=== PATIENT | male | born 1990 | race Caucasian/White ===

== ENCOUNTER 2023-03-03 18:09 | Emergency (ER) | payer SELFPAY ==
[2023-03-03 18:12] VITALS: BP 112/73; PULSE 75; TEMP 36.6; O2SAT 99; BMI 23.6
--- NOTE | 2023-03-03 18:17 | XRR_ITS ---
PROCEDURE INFORMATION: Exam: XR Right Hand Exam date and time: 03/03/2023 6:36 PM Age: 32 years old Clinical indication: Injury or trauma; Other: Punched door TECHNIQUE: Imaging protocol: Radiologic exam of the right hand. Views: 3 or more views. COMPARISON: No relevant prior studies available. FINDINGS: Bones/joints: Normal. Soft tissues: Normal. XR/XR hand RT min 3V* [id number] IMPRESSION: No acute findings.
--- NOTE | 2023-03-03 18:18 | W.ED.GENADLT ---
HPI - General Adult General: Chief complaint: Extremity Injury, Upper Stated complaint: POSSIBLE BROKEN HAND Time Seen by Provider: 03/03/23 18:16 Source: patient and police Mode of arrival: ambulatory Limitations: no limitations History of Present Illness: 32-year-old male who [facility] here [facility]. States he is angry today 11 and punched a door. He had right hand pain since then is over the lateral portion of his hand he rates his pain a 6 out of 10 denies any other injuries he has no lacerations. Associated symptoms: Deny chest pain, dyspnea, headache(s), nausea, rash or vomiting Review of Systems Const: Denies: fever(s) or chills ENMT: Denies: throat pain or dental pain Card: Denies: chest pain Resp: Denies: dyspnea GI: Denies: abdominal pain, nausea or vomiting Musc: Reports: extremity pain; Denies: neck pain or back pain Skin/Breast: Denies: rash Neuro: Denies: headache(s) PFS ED PFSH: Social History Smoking and tobacco status: current every day smoker cigarettes Quit status (tobacco): not considering quitting Second hand smoke exposure: Yes Alcohol intake: current Alcohol intake frequency: few times a month Desire information about alcohol rehabilitation?: No Physical Exam Const: COMMON NORMALS: no acute distress, patient oriented x3 and healthy appearing HENMT: COMMON NORMALS: normocephalic and atraumatic HEAD & SCALP: normocephalic and atraumatic Neck/C-Spine: COMMON NORMALS: full ROM and supple Chest: COMMONS NORMALS: normal inspection of the chest Resp: COMMON NORMALS: normal respiratory effort Cardio: COMMON NORMALS: regular rate, regular rhythm and No murmurs present (Cardio) RATE: regular rate RHYTHM: regular rhythm GI: INSPECTION: Yes normal to inspection Extremity: NARRATIVE EXTREMITY EXAM: Tenderness and swelling to right lateral hand no wrist tenderness Neuro: COMMON NORMALS: patient oriented x3, moves all extremities and no focal motor deficits Psych: COMMON NORMALS: mental status grossly normal, Normal thought process present and cooperative THOUGHT PROCESS: Normal thought process present Skin: COMMON NORMALS: no rashes or lesions noted and no wounds GENERAL SKIN EXAM: no rashes or lesions noted Course Vital Signs: Vital signs: Vital Signs Temperature 97.9 F 03/03/23 18:12 Pulse Rate 75 03/03/23 18:12 Blood Pressure 112/73 03/03/23 18:12 Pulse Oximetry 99 03/03/23 18:12 Oxygen Delivery Me thod Room Air 03/03/23 18:12 MDM - General Adult Medical Decision Making Patient presents with hand contusion from punching a wall I reviewed his x-ray did not see any signs of any fracture his exam here is benign we will place an Cliff wrap he is stable for discharge back into the custody of police Medical Records I reviewed the patient's medical records. Lab Data Radiology Impressions Hand X-Ray 03/03/23 18:17 IMPRESSION: No acute findings. Discharge Plan Discharge Patient Disposition: Home Clinical Impression: Contusion of hand, right Condition: Stable Prescriptions: No Action No Known Home Medications Discharge Orders: Discharge ED (Routine); Ordered 03/03/23 Ordered By: Jesusita Parr Discharge Diet: Advance as tolerated Discharge Activity: Resume usual activity Patient Instructions: Hand Sprain (ED) Coding Level of Care Code ED Treatment Technician for Marilyn Zhou
[2023-03-03] MEDS: naproxen 500 mg Tablet PO (18:43)
--- NOTE | 2023-03-03 18:56 | PC.NURSE ---
Report taken from JIMMY Choi at [id number]
[2023-03-03 19:08] VITALS: BP 141/77; PULSE 71; RESP 18; O2SAT 97
--- NOTE | 2023-03-06 12:19 | DCPLANNER ---
control system manager called patient due to no primary care physician - no answer at this time.
== END 2023-03-03 19:10 | disposition home or self-care (01) ==
PROVIDERS: Emergency Provider Emergency Medicine
DX: S60.221A Contusion of right hand, initial encounter (principal); W22.8XXA Striking against or struck by other objects, initial encounter
CPT/HCPCS: 73130; 99283